=== PATIENT | male | born 1965 | race Caucasian/White ===

== ENCOUNTER → 2016-07-27 | Outpatient (CLI) | payer OTHER ==
--- NOTE | 2016-07-27 12:26 | RAD ---
Bilateral lower extremity venous ultrasound, 07/27/2016: History: Right foot swelling Duplex evaluation of the deep veins in the lower extremities was performed including grayscale, color-flow and spectral Doppler analysis. The femoral and popliteal veins demonstrate normal compressibility and normal responses to distal augmentation maneuvers. Color imaging of those vessels shows no evidence of intraluminal clot. The visualized deep veins in both calves are patent. The saphenofemoral junctions were also visualized. No significant reflux was identified in the visualized upper aspects of both greater saphenous veins. IMPRESSION: There is no sonographic evidence of deep vein thrombosis in either lower extremity.
--- NOTE | 2016-07-27 12:30 | RAD ---
Bilateral lower extremity arterial ultrasound, 07/27/2016: History: Bilateral leg pain Duplex evaluation of the major arteries in both lower extremities was performed including grayscale, color-flow and spectral Doppler analysis. There are minimal scattered atherosclerotic plaques. The common femoral, superficial femoral and popliteal arteries demonstrate good triphasic waveforms bilaterally. No significant velocity acceleration is seen to suggest focal stenosis. Patent posterior tibial, peroneal and anterior tibial arteries are present in both lower legs demonstrating good triphasic and biphasic Doppler waveforms. Similar triphasic waveforms are present at the dorsalis pedis artery levels bilaterally. IMPRESSION: Mild scattered atherosclerotic plaquing without evidence of significant arterial occlusive disease.
== END | disposition home or self-care (01) ==
LOC: US 09:50
PROVIDERS: ATTEND Family Medicine
DX: I87.2 Venous insufficiency (chronic) (peripheral) (principal); M79.89 Other specified soft tissue disorders; M79.605 Pain in left leg; M79.604 Pain in right leg
CPT/HCPCS: 93925; 93970